=== PATIENT | male | born 1970 | race Caucasian/White ===

== ENCOUNTER 2017-11-27 10:16 | Day surgery (SDC) | payer SELFPAY ==
[~2017-11-27 10:16] MED LIST: ACETAMINOPHEN 325 MG TABLET PO PRN; CEFAZOLIN 1 GM/D5W RTU 1 GM/50 ML RTUPB IV PRN; LACTATED RINGERS 1000 ML IV PRN; LIDOCAINE 0.5% INJ-PF (5 MG/ML) 50 ML SDV SUBCUT PRN; SCOPOLAMINE HYDROBROMIDE 1.5 MG PATCH.TD72 TD PRN; SUCCINYLCHOLINE CHLORIDE INJ 200 MG/10 ML VIAL ONE
[2017-11-27] MEDS ORDERED: BUPIVACAINE HCL 0.25 % INJ/PF (2.5 MG/1 ML) 30 ML VIAL ONE (12:43)
[2017-11-27] MEDS ORDERED: BUPIVACAINE INJ/PF LIPOSOME/PF 266 MG/20 ML SDV ONE (12:44)
[2017-11-27] MEDS ORDERED: LIDOCAINE 2% INJ-PF (20 MG/ML) 10 ML AMPUL ONE (12:44)
[2017-11-27] MEDS ORDERED: FENTANYL CITRATE INJ/PF 100 MCG/2 ML AMPUL ONE ×2 (12:44)
[2017-11-27] MEDS ORDERED: ACETAMINOPHEN 0 ML IV ONE (12:45)
[2017-11-27] MEDS ORDERED: DEXAMETHASONE SOD PHOSPHATE INJ 4 MG/1 ML VIAL ONE (12:45)
[2017-11-27] MEDS ORDERED: PROPOFOL INJ 200 MG/20 ML VIAL IV ONE (12:45)
[2017-11-27] MEDS ORDERED: MIDAZOLAM 2 MG/2 ML INJ ONE (12:45)
[2017-11-27] MEDS ORDERED: ONDANSETRON HCL INJ/PF 4 MG/2 ML SDV ONE ×2 (12:45→14:55)
[2017-11-27] MEDS ORDERED: FENTANYL CITRATE INJ/PF 100 MCG/2 ML AMPUL IV PRN ×3 (13:23)
[2017-11-27] MEDS ORDERED: PROMETHAZINE HCL INJ 25 MG/1 ML VIAL IV PRN ×2 (13:23)
[2017-11-27] MEDS ORDERED: MEPERIDINE HCL/PF INJ 25 MG/1 ML DISP.SYRIN IV PRN (13:23)
[2017-11-27] MEDS ORDERED: DIPHENHYDRAMINE HCL 50 MG/ML VIAL IV PRN (13:23)
[2017-11-27] MEDS ORDERED: OXYCODONE-ACETAMINOPHEN 5-325 MG TABLET PO PRN ×3 (13:23→14:42)
[2017-11-27] MEDS ORDERED: MORPHINE SULFATE 10 MG/ML INJ IV PRN (13:23)
[2017-11-27] MEDS ORDERED: ONDANSETRON HCL INJ/PF 4 MG/2 ML SDV IV PRN ×2 (13:23→14:43)
--- NOTE | 2017-11-27 14:42 | Discharge Summary ---
Discharge Summary (SDC) - Discharge Final Diagnosis: UMBILICAL HERNIA Date of Surgery: 11/27/17 Discharge Date: 11/27/17 Condition: Stable Forms: ASU Anesthesia D/C Instruction, Discharge POC-Surgical Service Treatment or Instructions: [facility] [address], [place] [address] Discharge Instructions: Open Abdominal Procedures (Hernia, Bowel Surgery) 1.General Information: a. DO NOT DRIVE a car or operative machinery for 1-2 weeks or as long as taking Narcotic pain medication. b. DO NOT consume alcohol, tranquilizers, sleeping medication, or any non- prescribed medication for 24 hours unless approved by your doctor or as long as taking pain medication. c. DO NOT make important decisions or sign any important papers for the first 24 hours after surgery. d. When discharged home the same day as surgery have a responsible person with you the first night. 2.Activity Restriction: 8 weeks; a. Avoid heavy lifting (> 10-15 lbs), straining abdominal muscles and sports, mowing lawn, vacuum film cleaner and bending over a lot. b. Walking is important to avoid blood clots in the legs and deep breathing can prevent pneumonia. c. If it fine to go for walks, up and down steps, and ride in a car. 3.Treatment: a. You may remove dressing or Band-Aids the day after surgery and shower 48 hours after surgery, but you should not bathe in a tub or go swimming for 2 weeks. b. If you have paper strips (steri strips) on the skin, do not remove them as they will fall off in the coming weeks. Pat them dry after your shower. Sutures beneath the paper strips dissolve. If you have skin sutures or metal susanna they will be removed on your follow up visit. They may also get wet with a shower. c. Do not use oils, powders, or lotion on your incision. 4.Medications: a. You may take prescription tablets for pain if needed, one every 6 hours (_ Toradol_). c. You may resume all normal medications unless a change is specified by your doctors. 5.Diet: a. If going home the same day as surgery start with clear liquids, and if you do well then advance to normal foods low inf fat and protein. Smaller portion size may be britton the first night. 6.Notify Physician If: a. Pain is not relieved by pain medication b. Persistent nausea and vomiting c. Chills, fever (above 101) d. Persistent bleeding or swelling at the operative site e. Unable to urinate for 6-8 hours f. Increased redness, drainage, or foul smelling discharge from incision 7. Follow Up Care: a. Please call our office to schedule an appointment with your doctor for 2 weeks. In the event of any postoperative problems or questions you may call our office during business hours or the On-Call surgeon through the tape rules printing machine operator at [facility]. [facility] [phone] [facility] [phone] (Ask for the surgeon command and control specialist) b. I understand the instructions for my postoperative care as described above and a copy has been given to me. _ Witness Patient/Significant Other Date Prescriptions: Ketorolac Tromethamine [Toradol 10 mg Tablet] 10 mg PO Q6HP PRN #20 tablet PRN Reason: Referrals: VAHID ROSALES MD [ACTIVE STAFF] - 12/09/17 8:30 am Discharge Diet: As Tolerated Discharge Activity: No Lifting Over 10 Pounds, No Lifting/Push/Pulling, Walk Frequently Report the Following to Your Physician Immediately: Nausea, Vomiting, Increase in Pain, Fever over 101 Degrees, Unusual Bleeding, Redness, Drainage-Foul Smelling
[2017-11-27] MEDS: FENTANYL CITRATE INJ/PF 100 MCG/2 ML AMPUL ONE ×2 (14:50→15:00)
--- NOTE | 2017-11-27 14:52 | Operative Report ---
Operative Report DATE OF SURGERY: 11/27/17 PREOPERATIVE DIAGNOSIS: Recurrent umbilical hernia complete POSTOPERATIVE DIAGNOSIS: Same OPERATION: Open umbilical herniorrhaphy with extraperitoneal placement of 6 cm ventrolux mesh SURGEON: VAHID MOBLEY ELECTRICIAN STATION ASSISTANT: ZAC PENA ANESTHESIA: GA TISSUE REMOVED OR ALTERED: Elements of a hernia sac COMPLICATIONS: None ESTIMATED BLOOD LOSS: 15 cc INTRAOPERATIVE FINDINGS: See below PROCEDURE: The patient was taken to the operating room where he underwent general anesthesia via endotracheal intubation. The abdomen abdomen previously clipped of hair, was prepped and draped in sterile fashion with Betadine. Surgical plan and surgical timeout were conducted. Findings are significant for a supraumbilical curvilinear incision site of the previous herniorrhaphy. The skin was anesthetized with quarter percent Marcaine plain, and an approximately 4 centimeters incision was made over the scar from the previous herniorrhaphy. We now spent the next 45 minutes dissecting the umbilicus and stalk off of the underlying hernia sac. This was a very scarred, difficult dissection which was undertaken in a tedious but methodical fashion. There was no foreign body and no retained stitches identified. The peritoneum was entered on several occasions during this dissection again due to the very irregular nature of the hernia sac, scar tissue and its confluence with very thickened retroperitoneal tissue. The peritoneal defects were closed with [id number] 2-0 Vicryl sutures. The fundamental fascial defect was approximately 2 cm in diameter. We placed Keith clamps on the fascia at the 12 and 6 o'clock positions, and this facilitated our dissection into the plane between the peritoneum, and the transversalis fascia. Along the patient's left side , the retroperitoneal space opened reasonably well but on the patient's right side, the tissue was extremely stuck. We worked this as best we could to develop a pocket large enough to accommodate the planned prosthetic mesh. We now brought onto the field a Bard ventrolux 6 cm polypropylene mesh after checking for the expiration date. We folded up like a Taco and deployed it into the extraperitoneal space. We made certain that it was splayed out circumferentially. We now secured it at the 12, 3, 6, 9:00 positions using PDS suture in a loop fashion, securing the knots on top of the fascia. The now approximated the fascial defect transversely and closed the primary fascial defect with 2 interrupted 0 PDS sutures. The felt the operation was completed satisfactorly. The umbilical stalk was pexed to the fascial closure with a single 2-0 Vicryl suture thereby creating an indented umbilicus. The remainder of the operative closure was completed with the 3-0 Vicryl suture. Benzoin Steri-Strips, bulky 4 x 4 dressing applied. Abdominal binder applied however prior to this, 20 cc of full-strength Exparel was deployed in the subcutaneous tissues around the incision. The physician assistant teacher primary, Ms. Wade, provided assistance during this case by: Assisting with retracting tissue, instillation of local anesthesia and closure of skin incisions.
[2017-11-27] MEDS ORDERED: KETOROLAC TROMETHAMINE INJ/PF 30 MG/1 ML SDV ONE (15:13)
[2017-11-27 17:00] VITALS: BP 121/83
== END 2017-11-27 16:50 | disposition home or self-care (01) ==
LOC: OROUT 10:16
PROVIDERS: ATTEND Surgery
PROC: 0WUF0JZ Supplement Abdominal Wall with Synthetic Substitute, Open Approach (ICD-10-PCS; principal; 2017-11-27 12:00)
DX: K42.9 Umbilical hernia without obstruction or gangrene (principal); E87.5 Hyperkalemia; I10 Essential (primary) hypertension; Z15.89 Genetic susceptibility to other disease; Z79.899 Other long term (current) drug therapy; Z79.82 Long term (current) use of aspirin
CPT/HCPCS: 88302 ×2; 49585; J2250; J0690; J1100; J3010; J1885; J0330; J2405; J2704; J3490; C9290; 750; J0131

== ENCOUNTER 2018-08-21 12:44 | Observation (INO) | payer SELFPAY ==
[~2018-08-21 12:44] MED LIST changes: -ACETAMINOPHEN 325 MG TABLET PO PRN; -CEFAZOLIN 1 GM/D5W RTU 1 GM/50 ML RTUPB IV PRN; -LACTATED RINGERS 1000 ML IV PRN; -LIDOCAINE 0.5% INJ-PF (5 MG/ML) 50 ML SDV SUBCUT PRN; +ROCURONIUM BROMIDE INJ 50 MG/5 ML VIAL IV ONE; -SCOPOLAMINE HYDROBROMIDE 1.5 MG PATCH.TD72 TD PRN
[2018-08-21] MEDS ORDERED: FENTANYL CITRATE INJ/PF 100 MCG/2 ML AMPUL IV ONE (12:50)
[2018-08-21] MEDS ORDERED: NORMAL SALINE 1000 ML 1,000 ML IV ONE (12:50)
[2018-08-21] MEDS ORDERED: HYDROMORPHONE HCL INJ/PF 2 MG/ML AMPULE IV ONE (12:50)
--- NOTE | 2018-08-21 12:52 | ER Document Report ---
ED General - General Stated Complaint: HEADACHE Time Seen by Provider: 08/21/18 12:50 Mode of Arrival: Ambulatory Information source: Patient TRAVEL OUTSIDE OF THE [place] IN LAST 30 DAYS: No - HPI Notes: 47 male presents the ED with complaints of periumbilical and right lower quadrant abdominal pain for the last week has become progressively worse in the last 7 days and worse in the last 24 hours. Family sick with viral stomach flu, initially thought this was the cause of his abdominal pain. Reports pain constant with intermittent sharp shooting pain to right lower quadrant. Denies any trauma. Tried tcgj-fef-czwckik medications without relief. Worse with movement and time, nothing makes better. Symptoms have been progressive. Denies any heart pain, shortness of breath, fever chills. reports passing flatus - Related Data Allergies/Adverse Reactions: No Known Allergies Allergy (Verified 08/21/18 13:11) Past Medical History - General Information source: Patient - Social History Smoking Status: Never Smoker Family History: Reviewed & Not Pertinent - Past Medical History Cardiac Medical History: Reports: Hx Hypertension Denies: Hx Coronary Artery Disease - HYPERLIPIDEMIA, Hx Heart Attack Pulmonary Medical History: Denies: Hx Asthma, Hx Bronchitis, Hx COPD, Hx Pneumonia Neurological Medical History: Denies: Hx Cerebrovascular Accident, Hx Seizures Musculoskeletal Medical History: Denies Hx Arthritis - Immunizations Hx Diphtheria, Pertussis, Tetanus Vaccination: Yes Review of Systems - Review of Systems Constitutional: No symptoms reported EENT: No symptoms reported Cardiovascular: No symptoms reported Respiratory: No symptoms reported Gastrointestinal: See HPI Genitourinary: No symptoms reported Male Genitourinary: No symptoms reported Musculoskeletal: No symptoms reported Skin: No symptoms reported Hematologic/Lymphatic: No symptoms reported Neurological/Psychological: No symptoms reported Physical Exam - Vital signs Vitals: Temp Pulse Resp BP Pulse Ox 98.8 F 83 20 127/93 H 99 08/21/18 14:12 08/21/18 14:12 08/21/18 14:12 08/21/18 14:12 08/21/18 14:12 - Notes Notes: PHYSICAL EXAMINATION: GENERAL: Well-appearing, well-nourished and in no moderate distress. HEAD: Atraumatic, normocephalic. EYES: Pupils equal round and reactive to light, extraocular movements intact, sclera anicteric, conjunctiva are normal. ENT: Nares patent, oropharynx clear without exudates. Moist mucous membranes. NECK: Normal range of motion, supple without lymphadenopathy LUNGS: Breath sounds clear to auscultation bilaterally and equal. No wheezes rales or rhonchi. HEART: Regular rate and rhythm without murmurs ABDOMEN: Soft,nondistended abdomen, RLQ abdominal pain on palapation. positive mcburney's point. No guarding, no rebound. No masses appreciated. slight right cva tenderness. no cva tenderness on left. Musculoskeletal: Normal range of motion, no pitting or edema. No cyanosis. NEUROLOGICAL: Cranial nerves grossly intact. Normal speech, normal gait. No rmal sensory, motor exams PSYCH: Normal mood, normal affect. SKIN: Warm, Dry, normal turgor, no rashes or lesions noted. Course - Re-evaluation Re-evalutation: 08/21/18 14:36 Afebrile vitals stable and in mild distress male presents with acute right lower quadrant abdominal pain. Patient recently had lab work done yesterday, CBC showed a white count of 9.1, no shift, CMP shows potassium 4.4, creatinine 0.93, BUN of 11, AST 21, ALT 36, lipase 22. Urinalysis negative for leuks, nitrates, glucosuria, ketones, proteinuria or hematuria. CT abdomen pelvis with IV and oral contrast showed appendicitis. Patient last had food or drink at [address] Goldman contacted at 1230, will admit to surgical service and prepared for OR. Pain decreased with fentanyl and Dilaudid, patient started on IV antibiotics. Patient with any friends her sister vitals, afebrile and in no distress. All questions or concerns, patient agreeable to be admitted to surgical service for removal of the appendix. - Vital Signs Vital signs: Temp Pulse Resp BP Pulse Ox 98.1 F 85 18 117/75 93 08/21/18 18:41 08/21/18 18:41 08/21/18 18:41 08/21/18 18:41 08/21/18 18:41 Discharge - Discharge Clinical Impression: Appendicitis Qualifiers: Appendicitis type: acute appendicitis Acute appendicitis type: with localized peritonitis Appendicitis gangrene presence: unspecified whether gangrene present Appendicitis perforation presence: unspecified whether perforation present Appendicitis abscess presence: unspecified whether abscess present Qualified Code(s): K35.30 - Acute appendicitis with localized peritonitis, without perforation or gangrene Condition: Stable Disposition: ADMITTED INPATIENT Admitting Provider: Surgicalist - Dr. Zeus Goldman Unit Admitted: OR
[2018-08-21] MEDS ORDERED: ONDANSETRON HCL INJ/PF 4 MG/2 ML SDV IV ONE (13:10)
[2018-08-21] MEDS ORDERED: METRONIDAZOLE 500 MG/NS RTU 500 MG/100 ML RTUPB IV ONE (14:26)
[2018-08-21] MEDS ORDERED: CEFAZOLIN 2 GM/D5W RTU 2 GM/50 ML RTUPB IV ONE (14:26)
[2018-08-21] MEDS ORDERED: BUPIVACAINE HCL 0.25 % INJ/PF (2.5 MG/1 ML) 30 ML VIAL ONE (14:54)
[2018-08-21] MEDS ORDERED: FENTANYL CITRATE INJ/PF 100 MCG/2 ML AMPUL ONE (15:02)
[2018-08-21] MEDS ORDERED: ACETAMINOPHEN 1,000 MG/100 ML RTUPB IV ONE (15:03)
[2018-08-21] MEDS ORDERED: DEXAMETHASONE SOD PHOSPHATE INJ 4 MG/1 ML VIAL ONE (15:03)
[2018-08-21] MEDS ORDERED: MORPHINE SULFATE 10 MG/ML INJ ONE (15:03)
[2018-08-21] MEDS ORDERED: CEFAZOLIN INJ 1 GM VIAL ONE (15:03)
[2018-08-21] MEDS ORDERED: PROPOFOL INJ 200 MG/20 ML VIAL IV ONE (15:03)
[2018-08-21] MEDS ORDERED: ONDANSETRON HCL INJ/PF 4 MG/2 ML SDV ONE (15:03)
[2018-08-21] MEDS ORDERED: MIDAZOLAM 2 MG/2 ML INJ ONE (15:03)
[2018-08-21] MEDS ORDERED: FAMOTIDINE INJ/PF 20 MG/2 ML SDV IV ONE (15:16)
[2018-08-21] MEDS ORDERED: SCOPOLAMINE HYDROBROMIDE 1.5 MG PATCH.TD72 ONE (15:18)
--- NOTE | 2018-08-21 15:27 | PDOC H&P ---
History of Present Illness Admission Date/PCP: 08/21/18 13:00 Patient complains of: Right lower quadrant pain History of Present Illness: SIERRA COSME is a 47 year old male who began having vague periumbilical abdominal pain approximately 7 days ago. His pain initially improved, however over the last 48 hours his pain greatly intensified. He has experienced fevers, chills, nausea, vomiting, and extreme abdominal pain. His pain is sharp and stabbing. It is 10 out of 10. It localizes to the right lower quadrant. It does not radiate. Nothing makes his pain better. Movement and palpation make it worse. Patient has a history of hyperlipidemia and hypertension. He denies chest pain, shortness of breath, headache, dizziness, orthostasis, fatigue, malaise, melena, hematochezia, hematemesis, blurry vision. Past Medical History Cardiac Medical History: Reports: Hyperlipidema, Hypertension Denies: Coronary Artery Disease - HYPERLIPIDEMIA, Myocardial Infarction Pulmonary Medical History: Denies: Asthma, Bronchitis, Chronic Obstructive Pulmonary Disease (COPD), Pneumonia Neurological Medical History: Denies: Seizures Musculoskeltal Medical History: Denies: Arthritis Hematology: Denies: Anemia Past Surgical History Past Surgical History: Reports: Cholecystectomy Social History Smoking Status: Never Smoker Frequency of Alcohol Use: Occasional Hx Recreational Drug Use: No Hx Prescription Drug Abuse: No - Advance Directive Resuscitation Status: Full Code Family History Family History: Reviewed & Not Pertinent Parental Family History Reviewed: Yes Children Family History Reviewed: Yes Sibling(s) Family History Reviewed.: Yes Medication/Allergy Home Medications: Alprazolam [Xanax 0.5 mg Tablet] 0.5 mg PO HSP PRN 08/21/18 Ezetimibe [Zetia 10 mg Tablet] 10 mg PO DAILY 08/21/18 Rosuvastatin Calcium [Crestor 5 mg Tablet] 5 mg PO DAILY 08/21/18 Allergies/Adverse Reactions: No Known Allergies Allergy (Verified 08/21/18 13:11) Review of Systems Constitutional: PRESENT: chills, fever(s). ABSENT: anorexia, fatigue, weakness Eyes: ABSENT: visual disturbances Ears: ABSENT: hearing changes Nose, Mouth, and Throat: ABSENT: sore throat Cardiovascular: ABSENT: chest pain Respiratory: ABSENT: cough, dyspnea Gastrointestinal: PRESENT: abdominal pain, nausea, vomiting. ABSENT: hematemesis, hematochezia, melena Genitourinary: ABSENT: dysuria Musculoskeletal: ABSENT: back pain Integumentary: ABSENT: pruritus, rash Neurological: ABSENT: confusion, convulsions, dizziness, numbness Psychiatric: ABSENT: anxiety, depression Endocrine: ABSENT: cold intolerance, heat intolerance Hematologic/Lymphatic: ABSENT: easy bleeding, easy bruising Physical Exam Vital Signs: Temp Pulse Resp BP Pulse Ox 98.8 F 83 20 127/93 H 99 08/21/18 14:12 08/21/18 14:12 08/21/18 14:12 08/21/18 14:12 08/21/18 14:12 Intake & Output 08/20/18 08/21/18 08/22/18 06:59 06:59 06:59 Weight 74.8 kg General appearance: PRESENT: no acute distress, well-developed, well-nourished Head exam: PRESENT: atraumatic, normocephalic Eye exam: PRESENT: EOMI, PERRLA. ABSENT: scleral icterus Mouth exam: PRESENT: moist, neck supple Neck exam: ABSENT: meningismus, tenderness, thyromegaly, tracheal deviation Respiratory exam: PRESENT: clear to auscultation sameera, unlabored. ABSENT: chest wall tenderness, tachypnea, wheezes Cardiovascular exam: PRESENT: RRR Pulses: PRESENT: normal radial pulses Vascular exam: PRESENT: normal capillary refill GI/Abdominal exam: PRESENT: guarding, rebound, tenderness. ABSENT: distended Extremities exam: ABSENT: clubbing Musculoskeletal exam: ABSENT: deformity Neurological exam: PRESENT: alert, awake, oriented to person, oriented to place, oriented to time, oriented to situation, CN II-XII grossly intact. ABSENT: motor sensory deficit Psychiatric exam: ABSENT: agitated, anxious, depressed Focused psych exam: ABSENT: delusional Skin exam: ABSENT: cyanosis, erythema, jaundice Results Laboratory Results: Outside labs reviewed chemistry normal. Blood cell count 9.1. Differential normal. Impressions: CT reviewed by me. Thickened appendix in the right lower quadrant. No obvious evidence of perforation, however there is a small amount of fluid in the right lower quadrant. Status: Image reviewed by me Assessment & Plan - Diagnosis (1) Appendicitis Qualifiers: Appendicitis type: acute appendicitis Acute appendicitis type: with localized peritonitis Appendicitis gangrene presence: unspecified whether gangrene present Appendicitis perforation presence: unspecified whether perforation present Appendicitis abscess presence: unspecified whether abscess present Qualified Code(s): K35.30 - Acute appendicitis with localized peritonitis, without perforation or gangrene Is this a current diagnosis for this admission?: Yes - Plan Summary Plan Summary: 47-year-old male with right lower quadrant abdominal pain. He has a CT scan which I have reviewed. The patient has acute appendicitis. Plan for operative intervention today. Risks/benefits discussed, informed consent obtained, and all questions answered.
[2018-08-21] MEDS ORDERED: FENTANYL CITRATE INJ/PF 100 MCG/2 ML AMPUL IV PRN ×3 (15:49)
[2018-08-21] MEDS ORDERED: PROMETHAZINE HCL INJ 25 MG/1 ML VIAL IV PRN ×2 (15:49)
[2018-08-21] MEDS ORDERED: DIPHENHYDRAMINE HCL 50 MG/ML VIAL IV PRN (15:49)
[2018-08-21] MEDS ORDERED: MEPERIDINE HCL/PF INJ 25 MG/1 ML DISP.SYRIN IV PRN (15:49)
[2018-08-21] MEDS ORDERED: OXYCODONE-ACETAMINOPHEN 5-325 MG TABLET PO PRN ×2 (15:49)
[2018-08-21] MEDS ORDERED: MORPHINE SULFATE 10 MG/ML INJ IV PRN ×2 (15:49→16:36)
[2018-08-21] MEDS ORDERED: ONDANSETRON HCL INJ/PF 4 MG/2 ML SDV IV PRN (16:36)
[2018-08-21] MEDS ORDERED: HYDROCODONE/ACETAMINOPHEN 10-325 MG TABLET PO PRN (16:43)
--- NOTE | 2018-08-21 17:42 | Operative Report ---
Nonrecallable Operative Report DATE OF SURGERY: 08/21/18 PREOPERATIVE DIAGNOSIS: Acute appendicitis POSTOPERATIVE DIAGNOSIS: Acute nonperforated appendicitis OPERATION: Laparoscopic appendectomy SURGEON: MARJORIE BAILON ANESTHESIA: GA TISSUE REMOVED OR ALTERED: Appendix COMPLICATIONS: None apparent ESTIMATED BLOOD LOSS: Minimal PROCEDURE: Drains/implants: None. Procedure in detail: After informed consent was obtained, the patient was brought to the operating room and laid in the supine position. The area of the abdomen was prepped and draped in a normal sterile fashion. The patient had a previously placed periumbilical hernia mesh. Secondary to this, the abdomen was accessed from the left upper quadrant with a 5 mm trocar, 5 mm camera, and the Optiview technique. Once the camera was reinserted, gas insufflation was attached, and pneumoperitoneum was achieved. A 12 mm trocar was placed in the supraumbilical/subxiphoid position. A 5 mm trocar was placed in the left lower quadrant. It was all done under direct laparoscopic visualization. The appendix was easily identified. It was thickened and inflamed. It was adherent to the adjacent small bowel and cecum, but did not have signs of perforation. There is no sign of abscess. The appendix was retracted anteriorly. The mesoappendix was taken down using the harmonic scalpel. 2 PDS Endoloops were secured around the base of the appendix. The appendix was then amputated with the harmonic scalpel. It was placed into an Endo Catch bag and pulled out through the supraumbilical port. The camera was reinserted. The lower quadrant was free of any bleeding. Once this was confirmed, suction was used to remove a small amount of blood from the right lower quadrant. No irrigation was used. The 12 mm port was removed. The defect was closed using the Jaspreet-Sally device and 0 Vicryl suture in [id number] fashion. Once this was completed, the 5 mm trochars were removed, and pneumoperitoneum was relieved. The skin was then closed using 4-0 Vicryl Rapide suture in subcuticular fashion. Dressings were placed, and the procedure was concluded. All sponge, instrument, and needle counts were correct x2. Condition: Stable.
[2018-08-21 18:47] VITALS: BP 117/75
[2018-08-21] MEDS ORDERED: ENOXAPARIN SODIUM INJ 30 MG/0.3 ML DISP.SYRIN SUBCUT SCH (20:00)
--- NOTE | 2018-08-21 20:03 | PDOC DISCHARGE SUMMARY ---
General - Admit/Disc Date/PCP Admission Date/Primary Care Provider: 08/21/18 13:00 Discharge Date: 08/21/18 - Discharge Diagnosis (1) Appendicitis Is this a current diagnosis for this admission?: Yes - Additional Information Resuscitation Status: Full Code Discharge Diet: As Tolerated Discharge Activity: No Lifting Over 10 Pounds Home Medications: Alprazolam [Xanax 0.5 mg Tablet] 0.5 mg PO HSP PRN 08/21/18 Ezetimibe [Zetia 10 mg Tablet] 10 mg PO DAILY 08/21/18 Rosuvastatin Calcium [Crestor 5 mg Tablet] 5 mg PO DAILY 08/21/18 History of Present Illness History of Present Illness: SIERRA COSME is a 47 year old male who began having vague periumbilical abdominal pain approximately 7 days ago. His pain initially improved, however over the last 48 hours his pain greatly intensified. He has experienced fevers, chills, nausea, vomiting, and extreme abdominal pain. His pain is sharp and stabbing. It is 10 out of 10. It localizes to the right lower quadrant. It does not radiate. Nothing makes his pain better. Movement and palpation make it worse. Patient has a history of hyperlipidemia and hypertension. He denies chest pain, shortness of breath, headache, dizziness, orthostasis, fatigue, malaise, melena, hematochezia, hematemesis, blurry vision. Hospital Course Hospital Course: The patient was admitted to the hospital for definitive surgical care. The patient was taken to the operating room where laparoscopic appendectomy was performed. His surgery was successful. His appendix was not ruptured. He was taken to the floor in stable condition. He began ambulating, tolerating a diet, and taking oral pain medications. On the evening of 08/21/2018, the patient had reached maximal hospital benefit and was fit for discharge. Physical Exam Vital Signs: Temp Pulse Resp BP Pulse Ox 98.1 F 85 18 117/75 93 08/21/18 18:41 08/21/18 18:41 08/21/18 18:41 08/21/18 18:41 08/21/18 18:41 Intake & Output 08/20/18 08/21/18 08/22/18 06:59 06:59 06:59 Intake Total 1400 Output Total 220 Balance 1180 Weight 74.8 kg Qualifiers - * PATIENT BEING DISCHARGED WITH ANY OF THE FOLLOWING DIAGNOSIS: No Plan Discharge Plan: Discharge home. Diet as tolerated. Activity: No lifting greater than 10 pounds x 2 weeks. Follow-up with me in 7-10 days. [place] 10/325 mg p.o. every 6 hours as needed for pain. Okay to shower in 48 hours. Tub baths or swimming pools times 2 weeks.
[2018-08-21] MEDS ORDERED: KETOROLAC TROMETHAMINE INJ/PF 30 MG/1 ML SDV IV SCH (22:00)
== END 2018-08-21 20:45 | disposition home or self-care (01) ==
LOC: ER 12:44 → EH 13:00 → INTOOBSV 13:00 → 2N 18:08
PROVIDERS: ADMIT Surgery; ATTEND Surgery
PROC: 0DTJ4ZZ Resection of Appendix, Percutaneous Endoscopic Approach (ICD-10-PCS; principal; 2018-08-21 20:15)
DX: K35.80 Unspecified acute appendicitis (principal); E78.5 Hyperlipidemia, unspecified; I10 Essential (primary) hypertension; Z79.899 Other long term (current) drug therapy; Z90.49 Acquired absence of other specified parts of digestive tract
CPT/HCPCS: 99284; 87040; 87077; 87186; 88304 ×2; 44970; J2250; J0690; J3490; J1100; J3010; J2270; J1170; J0330; J2405; J7030; J2704; S0028; J0131; 840

== ENCOUNTER → 2018-08-21 | Outpatient (CLI) | payer SELFPAY ==
--- NOTE | 2018-08-21 12:32 | RADIOLOGY REPORT (SQ) ---
EXAM DESCRIPTION: CT ABD/PELVIS WITH IV ORAL COMPLETED DATE/TIME: 08/21/2018 12:12 pm REASON FOR STUDY: RLQ ABD PAIN IDC R10.813/ R10.31 R10.31 RIGHT LOWER QUADRANT PAIN COMPARISON: None. TECHNIQUE: CT scan of the abdomen and pelvis performed using helical scanning technique with dynamic intravenous contrast injection. Patient drank oral contrast. Images reviewed with lung, soft tissue , and bone windows. Reconstructed coronal and sagittal MPR images reviewed. Delayed images for evalua tion of the urinary system also acquired. All images stored on PACS. All CT scanners at this facility use dose modulation, iterative reconstruction, and/or weight based d osing when appropriate to reduce radiation dose to as low as reasonably achievable (ALARA). [facility]: Dose Right [facility]: CareDose [facility]: Dose Right [facility]: Teradose 4D [facility]: zerved CONTRAST TYPE AND DOSE: contrast/concentration: Isovue 350.00 mg/ml; Total Contrast Delivered: 85.0 ml; Total Saline Delivered: 69.0 ml RENAL FUNCTION: None required. The patient is less than 50 years old. RADIATION DOSE: CT Rad equipment meets quality standard of care and radiation dose reduction techniq ues were employed. CTDIvol: 6.1 - 8.5 mGy. DLP: 782 mGy-cm.. LIMITATIONS: None. FINDINGS: Acute appendicitis is present. Patient has multiple at appendicoliths in a distended thic k walled appendix in the right lower quadrant, best shown on coronal images 19-27. Several small schmitz bcentimeter right lower quadrant mesenteric lymph nodes are also present. There is a small amount of right lower quadrant fluid around the appendix. Perforation could not be excluded. No well circu mscribed abscess. This finding was called to Meghna Dick MD in the emergency room, 1220 hours 08/21/2018. LOWER CHEST: No significant findings. No nodules or infiltrates. LIVER: Normal size. No masses. No dilated ducts. SPLEEN: Normal size. No focal lesions. PANCREAS: No masses. No significant calcifications. No adjacent inflammation or peripancreatic fluid collections. Pancreatic duct not dilated. GALLBLADDER: Surgically absent ADRENAL GLANDS: No significant masses or asymmetry. RIGHT KIDNEY AND URETER: No solid masses. Two tiny right-sided less than 5 mm intrarenal nonobstruct anderson stones. No hydronephrosis or hydroureter. LEFT KIDNEY AND URETER: No solid masses. No significant calcifications. No hydronephrosis or hydr oureter. AORTA AND VESSELS: No aneurysm. No dissection. Renal arteries, SMA, celiac without stenosis. RETROPERITONEUM: No retroperitoneal adenopathy, hemorrhage or masses. BOWEL AND PERITONEAL CAVITY: Patient drank oral contrast. This outlines a normal distal ileum, and t hick walled distended appendix with multiple absent ankle its from acute appendicitis. Moderate stoo l in the ascending colon. No evidence of bowel obstruction or free intraperitoneal air. APPENDIX: Acute appendicitis as above PELVIS: No mass. No free fluid. Normal bladder. ABDOMINAL WALL: No masses. No hernias. BONES: No significant or acute findings. OTHER: No other significant finding. IMPRESSION: Acute appendicitis. Findings called to the patient's emergency room attending physician as above TECHNICAL DOCUMENTATION: JOB ID: [id number] Quality ID # [id number]: Final reports with documentation of one or more dose reduction techniques (e.g., Au tomated exposure control, adjustment of the mA and/or kV according to patient size, use of iterative reconstruction technique) 2010 [employer]- All Rights Reserved Reading location - IP/workstation name: [email or web address]
== END ==
LOC: RAD 09:03
PROVIDERS: ATTEND Nurse Practitioner Family
DX: K35.80 Unspecified acute appendicitis (principal)
CPT/HCPCS: 74177

== ENCOUNTER → 2018-11-14 | Outpatient (CLI) | payer SELFPAY ==
--- NOTE | 2018-11-14 14:37 | RADIOLOGY REPORT (SQ) ---
EXAM DESCRIPTION: BARIUM SWALLOW ESOPHAGUS COMPLETED DATE/TIME: 11/14/2018 8:35 am REASON FOR STUDY: DYSPHAGIA R13.10 DYSPHAGIA, UNSPECIFIED COMPARISON: None. TECHNIQUE: Under fluoroscopic guidance, patient ingested effervescent granules followed by thick and thin barium. Fluoroscopic spot images and routine radiographic images acquired and stored on PACS. 12 MM BARIUM TABLET GIVEN: The patient swallowed a 12 mm barium tablet which passed easily through th e esophagus and into the stomach without delay. LIMITATIONS: None. FLUOROSCOPY TIME: FLUORO TIME: 2.15 minutes 7 images saved to PACS. FINDINGS: NEUROMUSCULAR COORDINATION OF SWALLOW: Normal. No aspiration. ESOPHAGEAL MOTILITY: Normal peristalsis. No esophageal spasm. ESOPHAGEAL MUCOSA: Normal mucosa without masses or ulceration. GASTRO-ESOPHAGEAL JUNCTION: Small hiatal hernia present. No gastroesophageal reflux seen on today's study. NON-GI TRACT STRUCTURES: No significant finding. OTHER: No other significant finding. IMPRESSION: SMALL HIATAL HERNIA. OTHERWISE UNREMARKABLE STUDY. . RECOMMENDATION: None COMMENT: Quality ID [id number]: Final reports for procedures using fluoroscopy that document radiation exp osure indices, or exposure time and number of fluorographic images (if radiation exposure indices are not available) TECHNICAL DOCUMENTATION: JOB ID: [id number] [id number]- All Rights Reserved Reading location - IP/workstation name: [email or web address] [id number]
== END ==
LOC: RAD 08:04
PROVIDERS: ATTEND Surgery
DX: K44.9 Diaphragmatic hernia without obstruction or gangrene (principal); R13.10 Dysphagia, unspecified
CPT/HCPCS: 74220

== ENCOUNTER 2018-12-19 10:37 | Day surgery (SDC) | payer SELFPAY ==
[~2018-12-19 10:37] MED LIST changes: +CEFAZOLIN 2 GM/D5W RTU 2 GM/50 ML RTUPB IV PRN; +IBUPROFEN 800 MG in NORMAL SALINE 250 ML IV PRN; +LACTATED RINGERS 1000 ML IV PRN; +LIDOCAINE 0.5% INJ-PF (5 MG/ML) 50 ML SDV SUBCUT PRN; +SCOPOLAMINE HYDROBROMIDE 1.5 MG PATCH.TD72 TD PRN; -SUCCINYLCHOLINE CHLORIDE INJ 200 MG/10 ML VIAL ONE
[2018-12-19] MEDS ORDERED: CEFAZOLIN 2 GM/D5W RTU 2 GM/50 ML RTUPB IV ONE (10:49)
[2018-12-19] MEDS ORDERED: SCOPOLAMINE HYDROBROMIDE 1.5 MG PATCH.TD72 ONE (10:50)
[2018-12-19] MEDS ORDERED: MIDAZOLAM 2 MG/2 ML INJ ONE ×2 (11:54→13:48)
[2018-12-19] MEDS ORDERED: BUPIVACAINE HCL 0.25 % INJ/PF (2.5 MG/1 ML) 30 ML VIAL ONE (12:54)
[2018-12-19] MEDS ORDERED: LIDOCAINE 1% INJ-PF (10 MG/ML) 30 ML SDV ONE (12:54)
[2018-12-19] MEDS ORDERED: FENTANYL CITRATE INJ/PF 250 MCG/5 ML AMPULE ONE (13:48)
[2018-12-19] MEDS ORDERED: HYDROMORPHONE HCL INJ/PF 2 MG/ML AMPULE ONE (13:48)
[2018-12-19] MEDS ORDERED: DEXAMETHASONE SOD PHOSPHATE INJ 4 MG/1 ML VIAL ONE (13:48)
[2018-12-19] MEDS ORDERED: ONDANSETRON HCL INJ/PF 4 MG/2 ML SDV ONE (13:49)
[2018-12-19] MEDS ORDERED: PROPOFOL INJ 200 MG/20 ML VIAL IV ONE (13:49)
[2018-12-19] MEDS ORDERED: BUPIVACAINE INJ/PF LIPOSOME/PF 266 MG/20 ML SDV ONE (17:00)
[2018-12-19] MEDS ORDERED: PROMETHAZINE HCL INJ 25 MG/1 ML VIAL IV PRN (17:12)
[2018-12-19] MEDS ORDERED: FENTANYL CITRATE INJ/PF 100 MCG/2 ML AMPUL IV PRN ×3 (17:12)
[2018-12-19] MEDS ORDERED: MEPERIDINE HCL/PF INJ 25 MG/1 ML DISP.SYRIN IV PRN (17:12)
[2018-12-19] MEDS ORDERED: DIPHENHYDRAMINE HCL 50 MG/ML VIAL IV PRN (17:12)
--- NOTE | 2018-12-19 18:16 | Discharge Summary ---
Discharge Summary (SDC) - Discharge Final Diagnosis: Dysphasia, ventral incisional hernia. Date of Surgery: 12/19/18 Discharge Date: 12/19/18 Condition: Stable Treatment or Instructions: Discharge home. Diet as tolerated. Activity: No lifting more than 10 pounds x 6 weeks. Follow-up with me in 7 to 10 days. Toradol 10 mg p.o. every 8 hours as needed for pain. PRN [id number] Tylenol okay for pain. Okay to shower on Saturday. No tub baths or swimming pools x2 weeks. Referrals: DARIANA COHEN DO [Primary Care Provider] - Discharge Diet: As Tolerated Respiratory Treatments at Home: Deep Breathing/Coughing, Incentive Spirometer Discharge Activity: No Lifting Over 10 Pounds Home Care Assistance: None Needed Report the Following to Your Physician Immediately: Shortness of Breath, Nausea, Vomiting, Increase in Pain, Fever over 101 Degrees, Unusual Bleeding, Redness, Swelling, Warmth
--- NOTE | 2018-12-19 18:24 | Operative Report ---
Nonrecallable Operative Report DATE OF SURGERY: 12/19/18 PREOPERATIVE DIAGNOSIS: 1. Ventral incisional hernia. 2. Dysphagia POSTOPERATIVE DIAGNOSIS: 1. Ventral incisional hernia. 2. Dysphagia. 3. Mild antral gastritis. 4. Small, sliding-type hiatal hernia. 5. Reflux esophagitis, mild OPERATION: 1. Open ventral incisional hernia repair with implantation of ventralex ST hernia mesh. 2. EGD with biopsy. SURGEON: MARJORIE MOBLEY PLATE STRAIGHTENER: DELLA FAJARDO ANESTHESIA: GA TISSUE REMOVED OR ALTERED: 1. Antral biopsy. 2. Biopsy at distal esophagus. 3. Hernia sac. COMPLICATIONS: None apparent ESTIMATED BLOOD LOSS: Minimal PROCEDURE: Drains/implants: 6.[address] hernia mesh. Procedure in detail: After informed consent was obtained, the patient was brought into the operating room and laid in the supine position. The area of the abdomen was prepped and draped in a normal sterile fashion. An incision was created over the ventral incisional hernia. Dissection was carried down to the anterior abdominal wall fascia using sharp and blunt dissection. The hernia sac was freed from the fascia. There was a large amount of preperitoneal fat present. The preperitoneal fat was debrided away sharply and sent as a specimen. Next, a preperitoneal dissection was undertaken bluntly. A 6.[address] hernia mesh was then placed into the preperitoneal space. It was sutured to the anterior abdominal wall using 0 Prolene mattress suture. Once this was completed, the midline fascia was reapproximated, again using 0 Prolene suture. This was done in [id number] fashion x2. Next, the subcutaneous tissue was reapproximated using 3-0 Vicryl suture in simple interrupted fashion. The overlying skin was closed using 4-0 Vicryl Rapide suture in subcuticular fashion. A dressing was placed, and this portion of the procedure was concluded. Attention was then turned to performing the EGD. The endoscope was passed down the oropharynx, down the esophagus, and into the stomach. The stomach was insufflated with air. There was noted to be mild antral gastritis present. The scope was pushed through the pylorus and into the first and second portions of the duodenum. The duodenum appeared normal. The scope was pulled back into the antrum, where biopsy was taken for pathology. The scope was retroflexed in the stomach. A small, sliding-type hiatal hernia was identified. The scope was pulled up into the distal esophagus. Mild reflux esophagitis was identified. Biopsy was taken at the most affected portion. The scope was then withdrawn up the remainder of the esophagus. The remainder of the esophagus appeared smooth in contour without masses, lesions, or other abnormalities. The scope was removed from the oropharynx, and the procedure was concluded. All sponge, instrument, and needle counts were correct x2. Condition: Stable. Della Fajardo PA-C was scrubbed and present the entirety the procedure. She assisted with all portions of the procedure including opening of the skin, dissection of the hernia sac, dissection of the preperitoneal space, retraction, placement of the mesh, suturing of the mesh, closure of the fascia, closure of the skin.
[2018-12-19] MEDS ORDERED: KETOROLAC TROMETHAMINE 10 MG TABLET ONE (18:33)
[2018-12-19 19:54] VITALS: BP 107/63
== END 2018-12-19 19:35 | disposition home or self-care (01) ==
LOC: OROUT 10:37
PROVIDERS: ATTEND Surgery
DX: K43.2 Incisional hernia without obstruction or gangrene (principal); K29.50 Unspecified chronic gastritis without bleeding; K44.9 Diaphragmatic hernia without obstruction or gangrene; K21.9 Gastro-esophageal reflux disease without esophagitis; E78.5 Hyperlipidemia, unspecified; I10 Essential (primary) hypertension; Z79.899 Other long term (current) drug therapy; Z79.82 Long term (current) use of aspirin
CPT/HCPCS: 43239; 88342 ×2; 88302 ×2; 88305 ×2; 49560; 49568; C1781; J2250; J3490 ×2; J1100; J1170; J2405; J7050; J2704; J0690; C9290; J1741; J3010